=== PATIENT | male | born 1990 | race Caucasian/White ===

== ENCOUNTER 2020-02-09 06:05 | Emergency (ER) | payer OTHER ==
[~2020-02-09] VITALS: Ht 170.2 cm; Wt 79.8 kg
[2020-02-09 06:29] LABS: HEMOGLOBIN 9.1 gm/dL (14.0-18.0); RDW 26.3 % (10.5-14.5)
[2020-02-09 06:31] LABS: ABSOLUTE RETIC COUNT 0.2712 10^6/uL; HEMATOCRIT 26.1 % (42.0-52.0); MCH 28.5 pg (26.0-34.0); MCHC 34.8 g/dL (28.0-37.0); MCV 81.9 fL (80.0-100.0); OBSERVED RETIC COUNT 8.52 % (0.6-2.6); PLATELET COUNT 400 thou/uL (150-400); RBC 3.18 mil/uL (4.50-6.00); WBC 17.3 thou/uL (4.0-11.0)
[2020-02-09 06:41] LABS: CALCIUM 8.5 mg/dL (8.5-10.1); CREATININE 0.8 mg/dL (0.7-1.3); POTASSIUM 3.3 mmol/L (3.5-5.1)
[2020-02-09 06:47] LABS: TOTAL BILIRUBIN 4.4 mg/dL (<0.1-1.0); TOTAL PROTEIN 8.1 g/dL (6.4-8.2)
[2020-02-09] MEDS ORDERED: NORCO 5-325 TA1 EAC1 PO (07:23)
[2020-02-09] MEDS ORDERED: IBU600 MG PO (07:24)
[2020-02-09 07:47] VITALS: BP 115/61
[2020-02-09 08:02] LABS: ABSOLUTE NEUTROPHILS 9.2 thou/uL (1.4-8.2); ANISOCYTOSIS 3+; METAMYELOCYTES 1 %
[2020-02-09 08:03] LABS: MACROCYTES 1+; MICROCYTES 1+
== END 2020-02-09 07:47 | disposition home or self-care (01) ==
LOC: ER 06:05
PROVIDERS: Emergency Medicine
DX: D57.00 Hb-SS disease with crisis, unspecified (principal)

== ENCOUNTER 2020-02-09 11:37 | Inpatient (IN) | payer OTHER ==
[~2020-02-09] VITALS: Ht 170.2 cm; Wt 76.7 kg
[~2020-02-09 11:37] MED LIST: IBU600 MG PO; NORCO 5-325 TA1 EAC1 PO
[2020-02-09 11:54] VITALS: BP 137/53
[2020-02-09 12:38] LABS: TOTAL PROTEIN 7.5 g/dL (6.4-8.2)
[2020-02-09 13:00] LABS: URINE BILIRUBIN NEGATIVE (Negative); URINE BLOOD 1+ (Negative); URINE CLARITY CLEAR; URINE COLOR YELLOW; URINE GLUCOSE-RANDOM* NEGATIVE (Negative); URINE KETONES NEGATIVE (Negative); URINE LEUKOCYTES-REFLEX NEGATIVE (Negative); URINE NITRITE-REFLEX NEGATIVE (Negative); URINE PROTEIN (DIPSTICK) 1+ (Negative); URINE SPECIFIC GRAVITY 1.015 (1.005-1.035)
[2020-02-09 13:04] LABS: TSH 1.038 uIU/mL (0.358-3.740)
[2020-02-09 13:08] LABS: BACTERIA-REFLEX None Seen /HPF (None Seen); CASTS None Seen /LPF (None Seen); CRYSTALS None Seen /LPF (None Seen); SQUAMOUS None Seen /LPF (0-3); URINE RBC 0-2 Rare /HPF (0-2); URINE WBC-REFLEX 0-5 Rare /HPF (0-5)
[2020-02-09 14:46] VITALS: BP 132/58
[2020-02-09 16:30] VITALS: BP 122/60
[2020-02-09 20:06] VITALS: BP 149/67
--- NOTE | 2020-02-10 00:32 | NUR ---
PT AOX4. PT REPORTS SEVERE PAIN THROUGHOUT BODY, SPECIFICALLY IN BACK, CHEST, BOTH SHOULDERS, AND BOTH KNEES. PT RECEIVING PRN IV 0.5MG DILAUDID Q2HR, PRN IV 1.5MG DILAUDID Q4HR, AND PRN PO NORCO Q6HR. PT NPO EXCEPT FOR WATER, TOLERATING WATER INTAKE WITHOUT ISSUE. PT RESTING IN BED, NOTED TO HAVE INCREASED PAIN WITH MOVEMENT. PT REPORTS SOB, PROVIDED 2L OXYGEN VIA NC, PT REPORTS IMMEDIATE RELIEF. PT INDEPENDENT WITH REPOSITIONING. ENCOURAGED PT TO NOTIFY STAFF FOR ALL NEEDS. BED IN LOWEST POSITION, CALL LIGHT WITHIN REACH, BED ALARM ON. WILL CONTINUE TO MONITOR.
[2020-02-10 05:39] LABS: HEMOGLOBIN 7.6 gm/dL (14.0-18.0); RDW 25.6 % (10.5-14.5)
[2020-02-10 05:43] LABS: HEMATOCRIT 21.7 % (42.0-52.0); MCH 28.6 pg (26.0-34.0); MCHC 35.1 g/dL (28.0-37.0); MCV 81.5 fL (80.0-100.0); RBC 2.66 mil/uL (4.50-6.00); WBC 20.3 thou/uL (4.0-11.0)
[2020-02-10 05:48] LABS: ANION GAP 10 mmol/L (7-16); BUN 5 mg/dL (7-18); CALCIUM 8.1 mg/dL (8.5-10.1); CHLORIDE 99 mmol/L (98-107); CO2 23 mmol/L (21-32); CREATININE 0.6 mg/dL (0.7-1.3); GLUCOSE 118 mg/dL (74-106); MAGNESIUM 1.7 mg/dL (1.8-2.4); SODIUM 132 mmol/L (136-145); TROPONIN-I <0.06 ng/mL (<0.06)
[2020-02-10 05:58] LABS: POTASSIUM 3.5 mmol/L (3.5-5.1)
[2020-02-10 06:18] LABS: ABSOLUTE RETIC COUNT 0.2075 10^6/uL; OBSERVED RETIC COUNT 7.66 % (0.6-2.6)
[2020-02-10 08:01] VITALS: BP 119/66
[2020-02-10 08:30] LABS: % SATURATION 16 % (20-39); IRON 49 ug/dL (65-175); TIBC 301 ug/dL (250-450)
--- NOTE | 2020-02-10 09:13 | NUR ---
RECEIVED REPORT FROM NIGHT NURSE THAT PT IS NPO EXCEPT WATER AND PT DOESN'T WANT TO BE DISTURBD. DR. DHILLON HERE TO SEE PT AND SAID PT DOESN'T HAVE ANY SYMPTOMS OF COVID 19, BUT SINCE PT HAS SICKLE CELL EXCERBATION AND RETIC COUNT 7.6 WOULD LIKE PT TO BE TEST FOR COVID 19. NOTIFIED CHARGE NURSE, FOOD AND BEVERAGE DIRECTOR AND DOCTOR JOSE [address] WITH TRANSFER PT TO 3W. CALLED AND GAVE REPORT TO Godfrey GRAHAM NURSE. INFORMED PT ABOUT THE PLAN AND TRANSFER PT SOON.
--- NOTE | 2020-02-10 10:15 | NUR ---
ASSUMED CARE OF THE PT AT 0945. PT IS C/O PAIN, EVEN WHILE ASLEEP. LUNGS ARE CLEAR AND PULSES ARE STRONG. COVID TEST SENT TO LAB AND PT ON ISOLATION UNTIL COVID R/O CAN BE DETERMINED. PT IS NOT A FALL RISK AND SCD'S ARE NOT REQUIRED. PT IS NPO, BUT CAN HAVE WATER. BED IN THE LOWEST POSITION AND CALL LIGHT IS WITHIN REACH. WILL CONTINUE TO MONITOR THE PT.
--- NOTE | 2020-02-10 16:22 | NUR ---
ASSUMED CARE OF THE PT AT 0945. PT IS UP AD DORA AND IS NOT A FALL RISK, IF PT IS IN PAIN HE NEDS TO REMAIN IN BED BECAUSE HE IS UNSTEADY ON HIS FEET. PT CAN HAVE PAIN MEDS Q4 PRN OR Q2 FOR BREAKTHROUGH PAIN PER DOCTOR, SEE EMAR. PT TESTED NEG FOR COVID-19, SEE LABS. R AC IV DRY AND INTACT. C/O PAIN IS 10 OUT OF 10. PT IS RA. PT DRINKS WATER THROUGHOUT THE DAY BUT IS STILL NPO. CALL LIGHT IS WITHIN REACH AND BED IS IN THE LOWEST POSIION. WILL CONTINUE TO MONITOR THE PT.
--- NOTE | 2020-02-10 17:32 | NUR ---
Informed Dr. Llanos that patient Covid test is negative and temp 99.1 at 8pm last night. feels related to sickle cell crisis and in agreement to discontinuing isolation and transfer off floor.
[2020-02-10 19:35] VITALS: BP 126/65
--- NOTE | 2020-02-10 19:44 | NUR ---
PT GROGGY SLEEPING DURING ASSESSMENT. PT JUST RECEIVED IV PAIN MEDICATIONS. ROOM AIR O2 SAT 86%, 2L PER NC PLACED INCREASED 92%. PT FOLLOWED DIRECTIONS DURING VS AND ASSESSMENT. PT INDEPENDENT WITH ADLS, URINE DARK HERB IN URINAL. WAITING FOR RO[facility] ASSIGNMENT [facility].
--- NOTE | 2020-02-10 21:08 | NUR ---
REPORT CALLED TO 4W [facility]. PT RECEIVED PRN PAIN MED PRIOR TO TRANSFER. PT C/O GENERALIZED PAIN AND LE PAIN. PT HAD ALL OF HIS BELONGINGS RETURNED TO HIM.
[2020-02-11 05:58] LABS: HEMOGLOBIN 6.9 gm/dL (14.0-18.0); MCH 28.9 pg (26.0-34.0)
[2020-02-11 06:01] LABS: CALCIUM 7.9 mg/dL (8.5-10.1); CREATININE 0.6 mg/dL (0.7-1.3); MAGNESIUM 1.9 mg/dL (1.8-2.4); POTASSIUM 3.3 mmol/L (3.5-5.1)
[2020-02-11 06:03] LABS: ABSOLUTE RETIC COUNT 0.2497 10^6/uL; MCHC 35.9 g/dL (28.0-37.0); MCV 80.5 fL (80.0-100.0); OBSERVED RETIC COUNT 10.39 % (0.6-2.6); RBC 2.4 mil/uL (4.50-6.00); RDW 26.6 % (10.5-14.5); WBC 18.9 thou/uL (4.0-11.0)
[2020-02-11 06:07] LABS: HEMATOCRIT 19.3 % (42.0-52.0)
--- NOTE | 2020-02-11 06:17 | NUR ---
PROGRESS PT A/O X4 LUNGS CLEAR ABDOMEN SOFT WITH POSITIVE BS LAST BM 02/07. VOIDING LARGE AMOUNTS OF LIGHT PEACHY ORANGE COLORED URINE. DRINKING LARGE AMOUNTS OF WATER 3000 MLS LAST NIGHT, NS RUNNING AT 125MLS/HR. PT CONSISTENTLY RATES HIS PAIN AND 8 TO 9 LOWEST SCORE WAS A 6 AFTER MEDICATION. TAKING 1.5 MG DILAUDID Q2HRS PRN AND 0.5 MG DILAUDID Q2HRS PRN FOR BREAKTHROUGH PAIN.PT GRIMACES, WRITHES AND HOLDS HIS SHINS WHEN IN PAIN. HAD DIFFICULTY TRANSFERRING SLFT FROM WHEELCHAIR TO BED D/T PAIN. REQUESTED PT NOT TO GET OOB ALONE. AM LABS REVEALED HCT OF 19.3 FIDEL BARNES NOTIFIED VIA TEXT OF CRITICAL LAB AND NEED FOR DIET ORDER. AWAITNING RESPONSE.
[2020-02-11 07:42] VITALS: BP 145/61
[2020-02-11 09:29] LABS: ALBUMIN 3.3 g/dL (3.4-5.0); DIRECT BILIRUBIN 1.1 mg/dL (<0.1-0.2); TOTAL PROTEIN 6.9 g/dL (6.4-8.2)
[2020-02-11 09:30] LABS: TOTAL BILIRUBIN 5.7 mg/dL (<0.1-1.0)
[2020-02-11 13:41] VITALS: BP 145/61
--- NOTE | 2020-02-11 14:11 | NUR ---
Case opened to follow for dc planning. Project Financial Analyst spoke with the pt via phone. He indicates that he has utilized a community clinic in [place] in the past. He was indep and working prior to admission. [facility] in process d/t lack of health insurance, however the pt will likely need a tracey application. [facility] clinic link texted to the pt's cell phone for f/u care and several clinics noted on his dc instructions. CM to vouch for scripts at dc if neeeded. Pt getting blood transfusion today. Will follow.
[2020-02-11 16:00] VITALS: BP 128/62
[2020-02-11 16:05] VITALS: BP 128/60; BP 128/62
[2020-02-11 18:38] LABS: HEMATOCRIT 24.2 % (42.0-52.0)
[2020-02-11 18:40] LABS: HEMOGLOBIN 8.8 gm/dL (14.0-18.0)
--- NOTE | 2020-02-11 20:02 | NUR ---
Assumed pt care at 7am.Pt in bed most of the time today very weak and c/o generalized.Dilaidid ivp given as ordered with relief.Dr Marshall here,here order noted.1 unit of prbc given.Lab drawn to check hh level and the result was over 8.Report off to noc.No need for 2nd unit transfusion per covid protocol.Will continue to monitor.
[2020-02-11 20:15] VITALS: BP 132/63
--- NOTE | 2020-02-12 04:27 | NUR ---
Pt. rested quietly at intervals during the night when checked on during frequent rounds. He has been given iv pain medication for c/o generalized pain (see emar) with some relief noted. Taking po fluids well and voiding without difficulty. No c/o nausea.
[2020-02-12 06:28] LABS: HEMATOCRIT 23.7 % (42.0-52.0); HEMOGLOBIN 8.3 gm/dL (14.0-18.0); MCH 28.6 pg (26.0-34.0); MCHC 34.9 g/dL (28.0-37.0); MCV 81.9 fL (80.0-100.0); RBC 2.9 mil/uL (4.50-6.00); RDW 24.3 % (10.5-14.5); WBC 19.9 thou/uL (4.0-11.0)
[2020-02-12 06:44] LABS: ALBUMIN 3.1 g/dL (3.4-5.0); CALCIUM 8.2 mg/dL (8.5-10.1); CREATININE 0.5 mg/dL (0.7-1.3); MAGNESIUM 1.9 mg/dL (1.8-2.4); TOTAL BILIRUBIN 4.4 mg/dL (<0.1-1.0); TOTAL PROTEIN 7.2 g/dL (6.4-8.2)
[2020-02-12 07:07] LABS: POTASSIUM 2.9 mmol/L (3.5-5.1)
[2020-02-12 07:15] LABS: ABSOLUTE RETIC COUNT 0.2551 10^6/uL; OBSERVED RETIC COUNT 8.81 % (0.6-2.6)
[2020-02-12 07:20] VITALS: BP 138/64
--- NOTE | 2020-02-12 11:30 | NUR ---
Assumed pt care at 7am.Pt in bed resting.Assessment completed.vss.pt c/o generalized pain and requested for pain med.Dilaudid ivp given as ordered with relief.Dr Marshall and Seun here,order noted.Pt has adequate dark oli urine.Oral fluid encouraged.Miralax prn given per pt request.Will continue to monitor.
[2020-02-12 15:45] VITALS: BP 105/70
[2020-02-12 16:05] VITALS: BP 130/65
--- NOTE | 2020-02-12 16:10 | NUR ---
CARE TEAM INDICATED PT IS PROGRESSING SLOWLY TOWARD GOAL OF DC HOME. CM FOLLOWING REGARDING DC PLANNING.
[2020-02-12 19:14] VITALS: BP 130/58
[2020-02-13 07:57] LABS: ABSOLUTE RETIC COUNT 0.2833 10^6/uL; HEMOGLOBIN 8.1 gm/dL (14.0-18.0); MCH 29.4 pg (26.0-34.0); OBSERVED RETIC COUNT 10.33 % (0.6-2.6); PLATELET COUNT 222 thou/uL (150-400); RBC 2.74 mil/uL (4.50-6.00); RDW 24.5 % (10.5-14.5); WBC 19.6 thou/uL (4.0-11.0)
--- NOTE | 2020-02-13 08:05 | NUR ---
PROGRESS PT A/O X4 UP AD DORA VOIDING QS AND DRINKING LARGE AMOUNTS OF WATER, IVF'S INFUSING AT 125ML/HR. VOIDING CLEAR YELLOW URINE THE ORANGE TINGE IS DISSIPATING. PT TAKING DILAUDID 2 MG Q4HRS FOR PAIN OF 8 TO 9 AND SCHEDULED HYDROCODONE PAIN HAS SLIGHTLY IMPROVED SINCE SUNDAY SKIN C/D/I VSS LABS STILL ABNORMAL HGB 8.8 AFTER UNIT OF RBC'S . CONTINUE TO MONITOR.
[2020-02-13 08:14] LABS: CALCIUM 8.2 mg/dL (8.5-10.1); CREATININE 0.5 mg/dL (0.7-1.3); MAGNESIUM 1.9 mg/dL (1.8-2.4); POTASSIUM 3.5 mmol/L (3.5-5.1); TOTAL BILIRUBIN 3.5 mg/dL (<0.1-1.0); TOTAL PROTEIN 7.5 g/dL (6.4-8.2)
[2020-02-13 08:15] VITALS: BP 126/64
[2020-02-13 10:17] LABS: ABSOLUTE NEUTROPHILS 14.7 thou/uL (1.4-8.2); MYELOCYTES 1 %; NUCLEATED RBCS 6 /100WBC
[2020-02-13 10:20] LABS: ANISOCYTOSIS 3+; MACROCYTES 1+; MICROCYTES 1+
[2020-02-13 10:21] LABS: POLYCHROMASIA SLIGHT
[2020-02-13 14:34] VITALS: BP 131/68
--- NOTE | 2020-02-13 15:48 | NUR ---
IT APPEARES THAT PT IS PROGRESSING SLOWLY TOWARD GOAL OF DC. PAIN IS IMPROVING. PT IS ON 2L O2 AT TIME OF THIS NOTE. 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 IT ISN'T ANTIPATED THAT PT WILL BE MEDICALLY STABLE TO DC OVER THE WEEKEND. PT HAD INFO FOR CLINICS UPON DC. PT WILL NEED NON NARCOTIC MEDS VOUCHERED UPON DC CM NOTIFIED PHYSICIAN THIS AFTERNOON THAT IT WEEKEND DC WAS ANTICPATED THAT SCRIPTS WERE NEEDED TO FILL. NO RESPONSE. CM TO FOLLOW INDICATED WITH DC PLANNING.
[2020-02-13 19:28] VITALS: BP 142/72
--- NOTE | 2020-02-13 19:47 | NUR ---
Assumed pt care this am, VS stable through out the shift. Pt had 2 bm, brownish green today. Pain was managed with medications, partial relief was noted. 2L of O2 via NC for comfort. POC followed, endorsed to the night nurse.
--- NOTE | 2020-02-14 02:49 | NUR ---
pain controlled this shift. patient had a bowel movement this shift. patient educated on use of narcotics on taking p.o vs iv and the benefit of taking po pain meds for pain management. patient ambulates to the bathroom with steady gaits. no shortness of air or distress noted this shift. patient in bed asleep at this time breathing regular and unlaboured.
[2020-02-14 08:28] VITALS: BP 127/73
[2020-02-14 14:35] VITALS: BP 131/61
--- NOTE | 2020-02-14 18:25 | NUR ---
ASSUMED CARE AROUND 0700, PT A&O X 4, NO ACUTE CHANGES NOTED. VSS, O2 ON 2L. PT C/O PAIN MEDICATED WITH ZULMA AND PRN WITH LITLE RELIEF, PROVIDER NOTIVED AND ASSESSED PT AT BEDSIDE. MEDS ADJUSTED PER MD, PT REPORTED BETTER RELIEF WITH NEW REGIMEN. IV TO LAC INFUSING 1/2NS AT 125ML/H. CONTINENT OF B&B, BM 02/13/20. RESTING IN BED, CALL LIGHT WITHIN REACH, WILL CONTINUE TO MONITOR PER POC.
[2020-02-14 19:23] VITALS: BP 126/65
[2020-02-15 03:31] VITALS: BP 132/69
--- NOTE | 2020-02-15 03:56 | NUR ---
PROGRESS PT A/O X4, SKIN C/D/I IV TO LAC INFUSING 1/2 NS@125. VOIDING QS HERB COLORED URINE IN LARGE AMOUNTS GOOD PO FOOD AND FLUID INTAKE. UP AD DORA GAIT STEADY. ON 2 LITERS OF O2 FOR COMFORT, TAKING SCHEDULED HYDROCODONE AND IV DILAUDID WITH EFFECT RATES PAIN AN 8 TO 9 BEORE AND A 5 ON PAIN REASSESSMENT. CONTINUE TO MONITOR AND MEDICATE NEEDED.
[2020-02-15 07:15] VITALS: BP 132/72
[2020-02-15 13:58] LABS: WBC 11.9 thou/uL (4.0-11.0)
[2020-02-15 14:01] LABS: ABSOLUTE RETIC COUNT 0.2543 10^6/uL; HEMATOCRIT 24.2 % (42.0-52.0); HEMOGLOBIN 8.4 gm/dL (14.0-18.0); MCH 28.9 pg (26.0-34.0); MCHC 34.6 g/dL (28.0-37.0); MCV 83.5 fL (80.0-100.0); OBSERVED RETIC COUNT 8.76 % (0.6-2.6); RDW 23.2 % (10.5-14.5)
[2020-02-15 14:04] LABS: PLATELET COUNT 308 thou/uL (150-400)
[2020-02-15 14:17] LABS: ALBUMIN 2.9 g/dL (3.4-5.0); CALCIUM 8.9 mg/dL (8.5-10.1); CREATININE 0.4 mg/dL (0.7-1.3); POTASSIUM 4.3 mmol/L (3.5-5.1); TOTAL BILIRUBIN 12.6 mg/dL (<0.1-1.0); TOTAL PROTEIN 8.9 g/dL (6.4-8.2)
[2020-02-15 14:57] LABS: ANISOCYTOSIS 3+; NUCLEATED RBCS 2 /100WBC
[2020-02-15 14:58] LABS: TARGET CELLS 3+
[2020-02-15 15:35] VITALS: BP 120/71
--- NOTE | 2020-02-15 16:59 | NUR ---
PT ALERT AND ORIENTED TIMES FOUR. VSS, IVF INFUSING PER ORDER. SCHEDULED AND PRN MEDICATIONS CONTROLLING PAIN WELL. PT TOLERATES MEDS AND MEALS. PT UP AB DORA WITH STEADY GAIT. PT PROGRESSING TOWRADS POC GOALS.
[2020-02-15 20:40] VITALS: BP 122/66
[2020-02-16 07:18] VITALS: BP 126/76
[2020-02-16 08:17] LABS: HEMATOCRIT 24.3 % (42.0-52.0); HEMOGLOBIN 8.2 gm/dL (14.0-18.0); MCH 28.5 pg (26.0-34.0); MCHC 33.8 g/dL (28.0-37.0); MCV 84.1 fL (80.0-100.0); PLATELET COUNT 357 thou/uL (150-400); RBC 2.89 mil/uL (4.50-6.00); WBC 13.1 thou/uL (4.0-11.0)
--- NOTE | 2020-02-16 08:42 | NUR ---
progress pt a/o x4 up ad cathy. still reporting bone pain at an 5 to an 8 taking 10 mg hydrocone scheduled and iv dilaudid 2 mg q4hrs prn with effect pt slept more this shift and took less medicine than previous shifts. eyes still jaundiced urine still very dark oli. voiding large amounts and drinking large amounts of fluid. vss continue to monitor
[2020-02-16 09:10] LABS: ALBUMIN 3.1 g/dL (3.4-5.0); CALCIUM 8.8 mg/dL (8.5-10.1); CREATININE 0.5 mg/dL (0.7-1.3); POTASSIUM 4.3 mmol/L (3.5-5.1); TOTAL BILIRUBIN 8.3 mg/dL (<0.1-1.0); TOTAL PROTEIN 9.1 g/dL (6.4-8.2)
[2020-02-16 09:31] LABS: ABSOLUTE RETIC COUNT 0.1922 10^6/uL; OBSERVED RETIC COUNT 6.66 % (0.6-2.6)
[2020-02-16 10:27] LABS: ABSOLUTE NEUTROPHILS 10.9 thou/uL (1.4-8.2); NUCLEATED RBCS 3 /100WBC
[2020-02-16 10:28] LABS: ANISOCYTOSIS 3+
--- NOTE | 2020-02-16 13:33 | NUR ---
ORDERS RECEIVED FOR EVAL AND TREAT. SPOKE WITH Pt WHO STATES HE IS GETTING UP WITHOUT DIFFICULTY AND THEY ALLOW HIM TO GO TO THE BATHROOM WITHOUT ASSIST. DISCUSSED WITH NURSING AND THEY STATE HE IS UP AD DORA. Pt DECLIINING A FORMAL P.T. EVAL BUT HAS BEEN UP AD DORA WITH NURSING AND MOST LIKELY SAFE FOR HOME WHEN MEDICALLY CLEAR
--- NOTE | 2020-02-16 14:42 | NUR ---
Nutrition: pt admitted with sickle cell crisis and seen for LOS. 2 weights taken around admit, 176# and 169#. Pt unsure which is accurate but voices no recent change. Eating well, 50-100% of meals. Did state he dislikes certain items so educated pt on ordering meals and obtained food preferences. On KCl, folic acid supplementation and IVFs. Place as low nutrition risk.
--- NOTE | 2020-02-16 15:21 | NUR ---
ORDERS RECEIVED AND APPRECIATED. SPOKE WITH PATIENT THIS P.M, DECLINING FORMAL OT EVAL. HAS BEEN UP AD DORA IN ROOM, ABLE TO PERFORM TOILETING AND DRESSING TASKS. NO CONCERNS GOING HOME. EDUCATION PROVIDED AND PATIENT REPORTS NO FURTHER QUESTIONS/CONCERNS.
[2020-02-16 15:37] VITALS: BP 131/69
[2020-02-16 19:15] VITALS: BP 138/75
--- NOTE | 2020-02-16 19:55 | NUR ---
PT A&OX4. IV INTACT TO L FA INFUSING FLUIDS W/O COMPS. UIP AD DORA. JAUNDICE NOTED THROUGHOUT BODY. PT TOLERATING PO AND IV PAIN MEDS FOR SICKLE CELL ANEMIA PAIN. URINE IS BROWN. PT IS VERY PLEASANT.
--- NOTE | 2020-02-17 02:43 | NUR ---
PT CARE ASSUMED WITH PT IN BED SLEEPING.PT IS A/O X4.PT IS UP AD DORA.PT IS ON 2L OF O2 PER NASAL CANULA.PT C/O PAIN AND PAIN MANAGED WITH DILAUDID AND HYDROCODONE.PT APPEARED TO BE IN NO ACUTE DISTRESS.IV ACCESS ON LT AC WITH 0.45NS AT 125.WILL CONTINUE TO MONITOR
[2020-02-17 06:03] LABS: HEMOGLOBIN 8.2 gm/dL (14.0-18.0); WBC 9.6 thou/uL (4.0-11.0)
[2020-02-17 06:04] LABS: ABSOLUTE NEUTROPHILS 5.9 thou/uL (1.4-8.2); BASOPHILS 0.8 % (0.0-2.0); EOSINOPHILS 2.6 % (0.0-3.0); HEMATOCRIT 23.2 % (42.0-52.0); LYMPHOCYTES 29.9 % (24.0-44.0); MCHC 35.1 g/dL (28.0-37.0); MCV 82.6 fL (80.0-100.0); MONOCYTES 5.6 % (1.0-8.0); PLATELET COUNT 395 thou/uL (150-400); POLYS 61.1 % (36.0-66.0); RBC 2.81 mil/uL (4.50-6.00); RDW 22.8 % (10.5-14.5)
[2020-02-17 06:20] LABS: ALBUMIN 2.9 g/dL (3.4-5.0); CALCIUM 8.9 mg/dL (8.5-10.1); CREATININE 0.6 mg/dL (0.7-1.3); POTASSIUM 3.9 mmol/L (3.5-5.1); TOTAL BILIRUBIN 11.6 mg/dL (<0.1-1.0); TOTAL PROTEIN 9.7 g/dL (6.4-8.2)
[2020-02-17 06:24] LABS: ABSOLUTE RETIC COUNT 0.1335 10^6/uL; OBSERVED RETIC COUNT 4.84 % (0.6-2.6)
[2020-02-17 07:05] VITALS: BP 121/56
[2020-02-17 07:09] LABS: HAV IgM AB (ANTI-HAV IgM) Negative (Negative); HEPATITIS B SURFACE AG Negative (Negative); HEPATITIS C VIRUS AB 0.1 (0.0-0.9)
--- NOTE | 2020-02-17 11:26 | NUR ---
Received awake on bed. Due medications given as prescribed, able to swallow meds w/o difficulty. With O2 at 2lpm via nasal cannula. A+Ox4. On regular diet; tolerating well, no nausea, no vomiting and no abdominal pain noted. Continent of bowel and bladder, able to use urinal and go to the toilet. With NS 1/2 at 125cc/hr, infusing well at L AC; dressing C/D/I. Up ad cathy. Assisted in ADLs. Complained of pain, due PRN pain meds given as prescribed. Reviewed pt's orders, with scheduled MRI/MRCP for today, pt was not placed on NPO post midnight- MRI staff informed; charge nurse and territory sales manager informed; asked pt last food and fluid intake- instructed to be on NPO until procedure is done. MRI staff Brandon informed re: last oral intake. MRI checklist done. Pt brought down via wheelchair for MRI; transferred back to room safely. To continue monitoring patient.
--- NOTE | 2020-02-17 16:21 | NUR ---
CARE TEAM INDICATED THAT PT WILL LIKELY BE MEDICALLY STABLE TO DISHCARGE HOME TOMORROW. CM TO VOUCHER NON NARCOTIC MEDS.
[2020-02-17 16:28] VITALS: BP 127/70
[2020-02-17 20:00] VITALS: BP 119/67
--- NOTE | 2020-02-18 03:32 | NUR ---
ASSUMED CARE OF PT AT 1900HRS. PT IS AOX4 AND LETS NEEDS BE KNOWN. PT IS UP AD DORA. PT IS JAUNDICED. PT HAD AN EPISODE OF CLEAR, YELLOW EMISIS APPROX 250ML. PT REPORTED PAIN AND NAUSEA AND WAS TREATED WITH PRN MEDS. MEDICATION WAS EFFECTIVE AND PT WAS ABLE TO SLEEP PART OF THE SHIFT. VSS AND NO S/S OF ACUTE DISTRESS. WILL CONTINUE TO MONITOR.
[2020-02-18 05:20] LABS: HEMATOCRIT 22.5 % (42.0-52.0); HEMOGLOBIN 7.7 gm/dL (14.0-18.0); MCH 28.9 pg (26.0-34.0); MCHC 34.4 g/dL (28.0-37.0); MCV 83.9 fL (80.0-100.0); RBC 2.68 mil/uL (4.50-6.00); RDW 21.9 % (10.5-14.5)
[2020-02-18 05:29] LABS: PLATELET COUNT 472 thou/uL (150-400); WBC 38.2 thou/uL (4.0-11.0)
[2020-02-18 05:53] LABS: ALBUMIN 2.9 g/dL (3.4-5.0); CALCIUM 8.9 mg/dL (8.5-10.1); CREATININE 0.6 mg/dL (0.7-1.3); POTASSIUM 3.9 mmol/L (3.5-5.1); TOTAL BILIRUBIN 19.7 mg/dL (<0.1-1.0); TOTAL PROTEIN 9.7 g/dL (6.4-8.2)
[2020-02-18 07:48] LABS: TOTAL BILIRUBIN 19.7 mg/dL (<0.1-1.0)
[2020-02-18 07:49] LABS: DIRECT BILIRUBIN 14.1 mg/dL (<0.1-0.2)
[2020-02-18 09:11] VITALS: BP 120/61
[2020-02-18 09:35] LABS: ABSOLUTE NEUTROPHILS 35.1 thou/uL (1.4-8.2); METAMYELOCYTES 1 %; NUCLEATED RBCS 1 /100WBC
[2020-02-18 09:40] LABS: ANISOCYTOSIS 2+
--- NOTE | 2020-02-18 10:57 | NUR ---
Received awake on bed. Due medications given as prescribed, able to swallow meds w/o difficulty. On O2 at 2lpm via nasal cannula. On regular diet- tolerating well; no nausea, no vomiting and no abdominal pain. Continent of bowel and bladder- using urinal to pass urine and able to go to the toilet- output measured and recorded accordingly. With 1/2NS at 125cc/hr, infusing well at L FA. Up ad cathy, independent with ADLs. Complained of pain, due PRN pain meds given as prescribed. Pt seen and examined by Dr Marshall- to inform GI re: elevation of Bilirubin- CLOAK ROOM ATTENDANT Gildardo informed; to inform pharmacy re: vaccines that needs to be given to patient; pain medications modified by physician; with lab draws orderes. Pt seen and examined by Dr Dennis- blood culture ordered; with consult to Dr Rivero- physician informed thru answering service, a/w rounds. To continue monitoring patient.
--- NOTE | 2020-02-18 11:35 | NUR ---
Case discussed with the care team. No dc today. Pt with anup meneses and being seen by surgery for poss ry. Will follow along to assist with filling scripts at dc and instructing the pt on access to f/u care at the [facility].
[2020-02-18 14:22] VITALS: BP 126/62
[2020-02-18 15:04] LABS: INR 1.1; PROTIME 11.4 Seconds (9.3-11.4)
[2020-02-18 19:10] VITALS: BP 122/64
[2020-02-19 04:55] LABS: HEMATOCRIT 20.5 % (42.0-52.0); MCHC 34.4 g/dL (28.0-37.0)
[2020-02-19 04:58] LABS: ABSOLUTE RETIC COUNT 0.1237 10^6/uL; MCH 28.8 pg (26.0-34.0); MCV 83.9 fL (80.0-100.0); OBSERVED RETIC COUNT 5.07 % (0.6-2.6); PLATELET COUNT 519 thou/uL (150-400); RBC 2.44 mil/uL (4.50-6.00); RDW 23.1 % (10.5-14.5)
[2020-02-19 05:14] LABS: ALBUMIN 2.6 g/dL (3.4-5.0); CREATININE 0.6 mg/dL (0.7-1.3); DIRECT BILIRUBIN 7.4 mg/dL (<0.1-0.2); TOTAL BILIRUBIN 10.6 mg/dL (<0.1-1.0); TOTAL PROTEIN 9.4 g/dL (6.4-8.2)
--- NOTE | 2020-02-19 07:20 | HC ---
[facility] [place] [address] CONSULTATION Name: SANTOS HAMLIN Room #: 453-P ADM IN M.R.#: [id number] Admission: 02/09/20 Attend Phys: Joaquin Dennis MD Discharge: Date of : 89 Report #: [id number] THIS REPORT FOR: cc: KAROLYN - No family physician/PCP FAM - No family physician/PCP Johnnie Rivero MD ~ CC: [facility] physician/PCP Joaquin Dennis DATE OF SERVICE: 02/18/2020 REASON FOR CONSULTATION: Possible cholangitis. ASSESSMENT: 1. Cholangitis. 2. Sickle cell crisis. 3. Hyperbilirubinemia. 4. Transaminitis. 5. Elevated alkaline phosphatase. 6. Hyponatremia. RECOMMENDATIONS: 1. Thank you very much for this consultation. I will follow along. 2. Agree with ERCP. White blood count up considerably. The patient is stable. Given findings of hyperbilirubinemia/obstructive jaundice as well as dilated common bile duct on ultrasound imaging, I do think choledocholithiasis and cholangitis is significantly possible. The MRCP was negative, but the MRCP does have a considerable false negative rate. 3. Agree with IV antibiotics. 4. We will see what the ERCP shows tomorrow, the patient likely needs laparoscopic cholecystectomy, possible liver biopsy as well. 5. We will add on INR, although, I do not think he has intrinsic liver issues at this point. HISTORY OF PRESENT ILLNESS: The patient is a very pleasant 29-year-old male who presented on 02/09/2020 with sickle cell crisis, at that time, he was having abdominal pain and body aches. He has a history of sickle cell anemia and has had a sickle crisis in the past as well. While in the hospital, the patient has had worsening hyperbilirubinemia and repeat ultrasound demonstrated dilated common bile duct with concerns for biliary obstruction. His white count is 37. The patient denies abdominal pain, nausea or vomiting currently. PAST MEDICAL HISTORY: Sickle cell disease. PAST SURGICAL HISTORY: Exploratory laparotomy. [facility] [address] [place] [address] CONSULTATION Name: SANTOS HAMLIN Room #: 453-P [facility] IN .R.#: [id number] Admission: 02/09/20 Attend Phys: Joaquin Dennis MD Discharge: Date of : 89 Report #: [id number] SOCIAL HISTORY: Denies use of alcohol, tobacco or recreational drugs. FAMILY HISTORY: Denies coagulopathy or malignancy. REVIEW OF SYSTEMS: CONSTITUTIONAL: No fever. No chills. HEENT: Denies blurring of vision, double vision, headaches, hearing loss, sinus drainage or sore throat. Denies blurring of vision, double vision, headaches, hearing loss, sinus drainage or sore throat. CARDIOVASCULAR: Denies chest pain, palpitations, orthopnea or paroxysmal nocturnal dyspnea. RESPIRATORY: Denies cough, wheezing, hemoptysis, or shortness of air. GASTROINTESTINAL: No nausea. No vomiting. No diarrhea. No Heartburn. No nausea. No vomiting. No diarrhea. No Heartburn. GENITOURINARY: Denies dysuria or hematuria or kidney stones. No urinary frequency, urgency or incontinence. Denies dysuria or hematuria or kidney stones. No urinary frequency, urgency or incontinence. MUSCULOSKELETAL: No joint pain. No muscle pain. NEUROLOGICAL: Denies tremor, stroke or seizure. Denies tremor, stroke or seizure. HEMATOLOGIC/LYMPHATICS: See above and below. SKIN: No rash or ulceration. ENDOCRINE: No heat or cold intolerance PSYCHIATRIC: Denies depression, anxiety, or schizophrenia. PHYSICAL EXAMINATION: VITAL SIGNS: Temperature 36.9, pulse 86, respiratory rate 16, blood pressure 126/62, pulse ox 97%. GENERAL: No apparent distress, alert and oriented x3. HEENT: PERRLA, EOMI, MMM, NCAT NECK: Supple. No LAD CARDIOVASCULAR: Regular rhythm and rate. Hemodynamically stable. Normal capillary refill. Regular rhythm and rate. Hemodynamically stable. Normal capillary refill. PULMONARY: Nonlabored. Clear to auscultation bilaterally ABDOMEN: Soft, nontender, nondistended. No guarding, rebound or rigidity. The patient does have a midline exploratory laparotomy incision. EXTREMITIES: Calves soft, nontender, no edema. SKIN: No rashes or bruises. He is severely jaundiced. PSYCHIATRIC: Normal mood and affect Normal mood and affect NEUROLOGICAL: Grossly intact. CN II-XII grossly intact. MUSCULOSKELETAL: 5/5 strength in upper extremities and lower extremities bilaterally LYMPHATICS: No cervical, inguinal, or supraclavicular lymphadenopathy. [address] [address] CONSULTATION Name: SANTOS HAMLIN Room #: 453-P ADM IN M.R.#: [id number] Admission: 02/09/20 Attend Phys: Joaquin Dennis MD Discharge: Date of : 89 Report #: [id number] LABORATORY DATA: White blood count 38.2, hemoglobin 7.7, platelets 47.2. Sodium 129, potassium 3.9, creatinine 0.6, bilirubin 19.7, direct bilirubin 14.1, AST 131, ALT 114, alkaline phosphatase 398. Viral hepatitis panel is negative. Abdominal ultrasound on 02/09/2020. IMPRESSION: Cholelithiasis. No ultrasound evidence of acute cholecystitis. Common bile duct is 5 mm. Abdominal ultrasound on 02/16/2020. IMPRESSION: Abdominal ultrasound demonstrates rapidly enlarging CBD size suggesting a distal duct obstruction. Ultrasound evaluation demonstrates multiple mobile and adherent small stones within the gallbladder. I suspect the patient has a distal duct stone producing obstruction. There are no current findings for acute cholecystitis. Common bile duct is 11 mm. MRCP IMPRESSION: 1. Distended gallbladder with numerous small stones. 2. Mildly prominent intrahepatic ducts and extrahepatic common bile duct with the common bile duct measuring up to 12 mm just proximal to the ampulla. The pancreatic duct was normal. 3. No filling defects are present in the common bile duct. No masses were identified in the head of the pancreas. 4. 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 5. The dilated common duct may be secondary to previous stone passage. No obstructing mass or obstructing calculus is present at this time. <ELECTRONICALLY SIGNED> By: Johnnie Rivero MD 02/19/20 0720 [id number] Johnnie Rivero MD /nt
[2020-02-19 07:26] LABS: ABSOLUTE NEUTROPHILS 8.5 thou/uL (1.4-8.2)
[2020-02-19 07:27] LABS: ANISOCYTOSIS 2+
[2020-02-19 07:28] LABS: HYPOCHROMASIA 2+
[2020-02-19 07:29] LABS: PLATELET ESTIMATE INCREASED
--- NOTE | 2020-02-19 07:32 | NUR ---
ASSUMED PT CARE AROUND 1930. AXOX4. INDEPENDENT WITH ADLs. CALLS APPROPRIATELY FOR HELP. VSS. KEPT NPO POST MN FOR GI PROCEDURE. NO S/S ACUTE DISTRESS NOTED OR REPORTED AT THIS TIME. CARE TRANSFERRED TO INCOMING RN AT THIS TIME.
[2020-02-19 08:01] VITALS: BP 114/67
--- NOTE | 2020-02-19 11:41 | NUR ---
CARE TEAM INDICATED THAT THEY ARE PLANNING TO DO AN ERCP AND A LAP MARIA LUISA. CM TO FOLLOW INDICATED WITH DC PLANNING.
[2020-02-19 15:55] VITALS: BP 122/54
--- NOTE | 2020-02-19 19:20 | NUR ---
Assumed pt care this am, pt was NPO and went down for ERCP. VS have been stable, seen by surgery for lap ry and liver biopsy tomorrow, NPO post midnight tonight pt aware. Pain managed with medication, gait is steady, no signs or verbalizations of distress have been noted. POC followed. Endorsed to the night nurse.
[2020-02-19 19:57] VITALS: BP 122/62
[2020-02-20 04:33] LABS: HEMOGLOBIN 6.9 gm/dL (14.0-18.0); MCHC 34.5 g/dL (28.0-37.0)
[2020-02-20 04:38] LABS: ABSOLUTE NEUTROPHILS 8.4 thou/uL (1.4-8.2); ABSOLUTE RETIC COUNT 0.1205 10^6/uL; BASOPHILS 0.7 % (0.0-2.0); EOSINOPHILS 1.2 % (0.0-3.0); LYMPHOCYTES 15.5 % (24.0-44.0); MCH 29.3 pg (26.0-34.0); MCV 84.8 fL (80.0-100.0); MONOCYTES 10.5 % (1.0-8.0); OBSERVED RETIC COUNT 5.12 % (0.6-2.6); PLATELET COUNT 575 thou/uL (150-400); POLYS 72.1 % (36.0-66.0); RBC 2.35 mil/uL (4.50-6.00); WBC 11.7 thou/uL (4.0-11.0)
[2020-02-20 04:42] VITALS: BP 113/58
[2020-02-20 04:51] LABS: ALBUMIN 2.5 g/dL (3.4-5.0); CALCIUM 8.6 mg/dL (8.5-10.1); CREATININE 0.6 mg/dL (0.7-1.3); DIRECT BILIRUBIN 4.8 mg/dL (<0.1-0.2); POTASSIUM 3.7 mmol/L (3.5-5.1); TOTAL PROTEIN 9.2 g/dL (6.4-8.2)
--- NOTE | 2020-02-20 06:47 | NUR ---
PROGRESS PT A/O X4 UP AD DORA VSS, REPORTS PAIN TO RUQ AT A 5 TO 9 TAKING HYDROMORPHONE 2 MG IVP PRN WITH EFFECT FOR PAIN. VSS, EYES AND SKIN JAUNDICED. REPORT GIVEN TO DAVON NURSE PT TO GO TO OR FOR LAP MARIA LUISA VIA BED AT 730.
[2020-02-20 12:00] VITALS: BP 119/59
[2020-02-20 12:30] VITALS: BP 123/58
[2020-02-20 13:01] VITALS: BP 123/61
--- NOTE | 2020-02-20 15:56 | P ---
[facility] [place] [address] PROCEDURE REPORT Name: SANTOS HAMLIN Room #: 453-P [facility] IN M.R.#: [id number] Admission: 02/09/20 Attend Phys: Joaquin Dennis MD Discharge: Date of : 89 Report #: [id number] THIS REPORT FOR: cc: KAROLYN - No family physician/PCP KAROLYN - No family physician/PCP Kemal Higginbotham MD ~ CC: Johnnie Rivero MD [facility] physician/PCP Joaquin Dennis ERCP REPORT BRIEF HISTORY: The patient is a 29-year-old male with sickle cell disease and markedly rising bilirubin. His bilirubin is up to 19. On MRCP, he has a dilated biliary tree, but an obvious stone was not present. His bilirubin has continued to rise. Overnight, there was significant drop in bilirubin, which has not entirely excluded the possibility of a stone. He does have gallstones. PREOPERATIVE DIAGNOSES: Cholelithiasis and jaundice. POSTOPERATIVE DIAGNOSES: 1. Dilated common bile duct without definite evidence of choledocholithiasis. 2. Cholelithiasis. MEDICATIONS: Intubation, general anesthesia. SPECIMEN: None. ESTIMATED BLOOD LOSS: 5 mL. PROCEDURE: ERCP with endoscopic sphincterotomy and balloon sweep of biliary tree. FINDINGS: Prior to intubation and general anesthesia, the procedure of ERCP was reviewed with the patient as well as potential risks and its complications. Potential sphincterotomy and stone extraction was discussed as well. He indicates he understands and desires that we proceed. DESCRIPTION OF PROCEDURE: With the patient intubated in the prone position in the operating suite, the Olympus side-viewing endoscope was inserted in cervical esophagus and advanced through the esophagus, stomach, across the pylorus and his duodenum. The papilla was identified. The papilla appeared to be somewhat patulous. Interestingly, there was some red blood on the mouth of the papilla. I would wonder if he did pass the stone overnight. There may have been some trauma and a small amount of oozing. The papilla had a benign appearance. It did appear to be somewhat redundant. The papilla was angled more laterally, which made cannulation more difficult. After several passes with the [facility] [address] [place] [address] PROCEDURE REPORT Name: SANTOS HAMLIN Room #: 453-P [facility] IN M.R.#: [id number] Admission: 02/09/20 Attend Phys: Joaquin Dennis MD Discharge: Date of : 89 Report #: [id number] sphincterotome, we were finally able to cannulate and on the first pass with cannulation, we had deep cannulation of the biliary tree. Injection of contrast revealed evidence of a dilated extrahepatic biliary tree. There was some filling the gallbladder and cholelithiasis was noted. The central intrahepatics were somewhat dilated, but no evidence of obstruction. Upon initial filling, there was a vague hypodense area in the common bile duct, it was oblong in shape. This may represent flow artifact with contrast or even air within the biliary tree. We then completed a sphincterotomy. A good sphincterotomy was obtained. Due to the orientation of the papilla was more lateral but since the papilla was somewhat redundant, there was plenty of room to complete a sphincterotomy. There was a small amount of oozing, which stopped spontaneously. We then exchanged for a balloon catheter. On MRCP, the biliary tree measured up to 2 cm. We started off with a 20 mm multistage balloon. We were able to inflate the balloon, but it would not pass easily and we dropped the level all the way down to 12 mm balloon into the distal duct, it would not pass. Injection of contrast was completed. An obvious filling defect was not seen. We then replaced that balloon with an 8.5-15 mm balloon and pulled the balloon catheter, inflated through the extrahepatic biliary tree while injecting contrast and no stones were seen. There was good drainage from the distal duct. The scope was withdrawn. The patient tolerated the procedure well. DISPOSITION: The patient with cholelithiasis and elevated bilirubin. His bilirubin had climbed to 19, which is somewhat unusual for obstruction. There is some subtle evidence that he may have passed a stone since yesterday with some blood noted on the mouth papilla. An intraductal stone was not seen. A small stone could be present, which was not seen. However, an adequate sphincterotomy was completed and small stone, sludge and debris should pass without difficulty. I am concerned that he has parenchymal disease due to the significant elevation of bilirubin. This was discussed with Dr. Rivero. Plans are for cholecystectomy tomorrow and I have asked Dr. Rivero also to obtain a liver biopsy. <ELECTRONICALLY SIGNED> By: Kemal Higginbotham MD 02/20/20 1556 1023 1220 Kemal Higginbotham MD /julienne
--- NOTE | 2020-02-20 16:05 | NUR ---
PT HAD LAP MARIA LUISA TODAY. CARE TEAM INDICTED THAT PT MAY BE MEDICALLY STABLE FOR DC OVER THE WEEKEND. TWO PERSCRIPTIONS WERE FILLED IN THE OP PHARMACY AND VOUCHERED BY CM FOR THE AMOUNT OF $31.33. THEY ON ON THE NURSES CART TO BE GIVEN TO PT IF PERSCRIBED UPON DC. PT GIVEN INFO FOR CLINICS FOR FOLLOW UP CARES. NO OTHER CM INTERVENTION INDICATED. CASE CLOSED.
--- NOTE | 2020-02-20 17:46 | NUR ---
PT A&OX4. AMBULATES WITH STAND BY ASSIST. RETURNED FROM PACU WITH LAP SITES C/D/I WITH DERMABOND. UMBILICUS SM DRSG IS C/D/I ITH JUAQUIN GAUZE. C/O PAIN TO ABD SEVERE. PT DID VOID 900 ML BROWN COLORED URINE. RESTARTED ON CLEARS AFTER 14:00 AND IS TOLERATING. CALL LIGHT W/ REACH. WILL CONT POC.
[2020-02-20 20:08] VITALS: BP 122/74
[2020-02-20 23:47] VITALS: BP 106/59
--- NOTE | 2020-02-21 03:40 | NUR ---
pain controlled this shift. patient 5 abd site are c/d/i. the umblical dressing is c/d/i. patient is up at cathy. patient in bed asleep at this time breathing regular and unlaboured
[2020-02-21 03:45] VITALS: BP 110/56
[2020-02-21 05:13] LABS: ABSOLUTE NEUTROPHILS 10.6 thou/uL (1.4-8.2); ABSOLUTE RETIC COUNT 0.1582 10^6/uL; BASOPHILS 0.3 % (0.0-2.0); EOSINOPHILS 0.3 % (0.0-3.0); HEMATOCRIT 25.7 % (42.0-52.0); HEMOGLOBIN 8.7 gm/dL (14.0-18.0); MCH 29.1 pg (26.0-34.0); MCV 85.5 fL (80.0-100.0); MONOCYTES 10.1 % (1.0-8.0); OBSERVED RETIC COUNT 5.27 % (0.6-2.6); POLYS 81.3 % (36.0-66.0); RDW 20.8 % (10.5-14.5); WBC 13.1 thou/uL (4.0-11.0)
[2020-02-21 05:16] LABS: PLATELET COUNT 743 thou/uL (150-400)
[2020-02-21 05:32] LABS: ALBUMIN 2.7 g/dL (3.4-5.0); CALCIUM 8.8 mg/dL (8.5-10.1); CREATININE 0.8 mg/dL (0.7-1.3); DIRECT BILIRUBIN 6.9 mg/dL (<0.1-0.2); POTASSIUM 3.9 mmol/L (3.5-5.1); TOTAL BILIRUBIN 8.7 mg/dL (<0.1-1.0); TOTAL PROTEIN 9.5 g/dL (6.4-8.2)
[2020-02-21 07:31] VITALS: BP 127/64
--- NOTE | 2020-02-21 13:56 | NUR ---
Received awake on bed. Due medications given as prescribed, able to swallow meds w/o difficulty. With O2 at 2lpm via nasal cannula. On full liquid diet, tolerating well; no nausea, no vomiting and no abdominal pain noted. Continent of bowel and bladder, able to use urinal and go to the bathroom. With 4 abdominal lap sites with dermabond; C/D/I, no signs of bleeding and infection noted. Complained of pain, due PRN pain meds given as prescribed. With SL at R AC- intact and flushing well; on IV antibiotics. To continue monitoring patient.
[2020-02-21 14:22] VITALS: BP 119/60
[2020-02-21 20:07] VITALS: BP 114/67
--- NOTE | 2020-02-22 02:58 | NUR ---
PAIN CONTROLLED THIS SHIFT. PATIENT HAD A SMALL BOWEL MOVEMENT THIS SHIFT. PATIENT HAS FIVE LAP SITE C/D/I. PATIENT ON FULL LIQUID AND TOLERATED WELL. PATIENT IN BED ASLEEP AT THIS TIME BREATHING REGULAR AND UNLABOURED.
[2020-02-22 04:04] VITALS: BP 118/72
[2020-02-22 07:17] VITALS: BP 105/62
[2020-02-22 12:20] LABS: HEMATOCRIT 24.9 % (42.0-52.0); HEMOGLOBIN 8.3 gm/dL (14.0-18.0); MCHC 33.5 g/dL (28.0-37.0); MCV 86.3 fL (80.0-100.0); RBC 2.88 mil/uL (4.50-6.00); RDW 21.7 % (10.5-14.5); WBC 14.2 thou/uL (4.0-11.0)
[2020-02-22 12:43] LABS: ALBUMIN 2.6 g/dL (3.4-5.0); CALCIUM 8.7 mg/dL (8.5-10.1); CREATININE 0.8 mg/dL (0.7-1.3); MAGNESIUM 1.6 mg/dL (1.8-2.4); POTASSIUM 3.4 mmol/L (3.5-5.1); TOTAL BILIRUBIN 5.2 mg/dL (<0.1-1.0); TOTAL PROTEIN 9.5 g/dL (6.4-8.2)
[2020-02-22 15:39] VITALS: BP 104/52
--- NOTE | 2020-02-22 19:46 | NUR ---
Assumed patient care at 0715. Vital signs stable, LSCTA, abdomen is slightly rigid and tender. Lap Radha sites are w/o signs/symptoms of infection. Patient has requested and received Hydromorphone 2mg/1mL x's 2 during this shift for "level six to seven" abdominal pain. Pain medication has been effective. Patient has had good output. He reported three loose stools at the end of this shift. He has tolerated the IV Antibiotics well. Patient is up ad cathy to use the restroom. Report given to on-coming RN.
[2020-02-22 20:04] VITALS: BP 105/59
--- NOTE | 2020-02-23 04:09 | NUR ---
PAIN CONTROLLED THIS SHIFT. PATIENT HAS FOUR LAP SITE WITH DERMAL DIAS ARE C/D/I. DRESSING ON THE UMBILICUS IS C/D/I. PATIENT ON STAND BY ASSIST. PATIENT IN BED ASLEEP AT THIS TIME BREATHING REGULAR AND UNLABOURED.
[2020-02-23 04:58] VITALS: BP 110/66
[2020-02-23 05:42] LABS: HEMATOCRIT 24.1 % (42.0-52.0); HEMOGLOBIN 8.4 gm/dL (14.0-18.0); MCHC 34.9 g/dL (28.0-37.0); MCV 86.2 fL (80.0-100.0); RBC 2.8 mil/uL (4.50-6.00); RDW 21.4 % (10.5-14.5); WBC 12.7 thou/uL (4.0-11.0)
[2020-02-23 06:04] LABS: ALBUMIN 2.5 g/dL (3.4-5.0); CALCIUM 8.9 mg/dL (8.5-10.1); CREATININE 0.8 mg/dL (0.7-1.3); MAGNESIUM 1.7 mg/dL (1.8-2.4); POTASSIUM 3.7 mmol/L (3.5-5.1); TOTAL PROTEIN 9.3 g/dL (6.4-8.2)
[2020-02-23 07:25] VITALS: BP 93/52
[2020-02-23] MEDS ORDERED: FOLIC ACID1 MG PO (11:35)
--- NOTE | 2020-02-23 13:33 | NUR ---
CARE TEAM INDICATED THAT PT IS MEDICALLY STABLE TO DC HOME THIS DAY. PT TO BE GIVEN HIS VOUCHERED FOLIC ACID TO TAKE HOME WITH HIM. PHYSICIAN INDICATED THAT HE DIDN'T NEED THE ANTIBIOTIC FOR HOME USE. PT WAS GIVEN INFO FOR [facility] TO FOLLOW UP AT UPON DC. NO OTHER CM INTERVENTION INDICATED. CASE CLOSED.
--- NOTE | 2020-02-23 18:29 | NUR ---
Assumed patient care at 0715. Vital signs stable, LSCTA, abdomen soft and non-tender, BS x's 4. Lap Radha Sites free from s/s of infection. Patient complained of diarrhea this am. Dr Dennis here to assess patient this am, he wrote orders for Discharge for the afternoon. Patient verbalized an understanding of Discharge Instructions before signing appropriate paperwork. Patient left at 1510 with Rx for Hydrocodone, Bottle of Folic Acid from [facility], Discharge Paperwork and all belongings.
--- NOTE | 2020-02-24 14:08 | PATH ---
[facility] [place] [address] PATHOLOGY RPT PROCEDURE Name: JASPER HAMLIN Room #: 453-P [facility] IN M.R.#: [id number] Admission: 02/09/20 Date of : 89 Discharge: 02/23/20 Report #: [id number] Path Case #: [id number] [facility] Accession Number: [id number] . 01 Material submitted: . PART A: liver - LIVER BIOPSY SEGMENT THREE PART B: gallbladder - GALLBLADDER . 01 Clinical history: . Obstructive jaundice . 02 Diagnosis: A. Liver, subcapsular wedge biopsy: - Marked sinusoidal dilatation and congestion, with aggregated sickled red blood cell thrombi and associated Kupffer cell erythrophagocytosis of sickle cells. - Kupffer cell and hepatocellular bile stasis. - Nodular regenerative hyperplasia. - Subcapsular hematomas. - Perisinudoidal/perivenular fibrosis. - Please see comment. . B. Gallbladder, excision: - Lithiasis. - Mild chronic cholecystitis. - Negative for malignancy. (MLK:pit; 02/24/2020) QTP 02/24/2020 1329 Local . 02 Comment: The liver biopsy is compatible with an acute sickle hepatic crisis. There is profound sinusoidal dilatation and congestion with aggregates of sickled red blood cells and thrombi. Prominent hepatocellular and Kupffer cell bile statsis is also noted and would be consistent with sickle cell intrahepatic cholestasis. There is no histologic evidence of a hepatobiliary duct obstruction. . . (MLK:pit; 02/24/2020) . 02 Electronically signed: . Hansel Delaney MD, Pathologist NPI- [id number] . 01 Gross description: . A. The specimen is received in formalin, labeled "Jasper Hamlin, liver biopsy segment three". Received is a segment [place] [address] PATHOLOGY RPT PROCEDURE Name: JASPER HAMLIN Room #: 453-P [facility] IN M.R.#: [id number] Admission: 02/09/20 Date of : 89 Discharge: 02/23/20 Report #: [id number] Path Case #: [id number] measuring 2.0 x 1.2 x 1.0 cm in greatest dimensions. The specimen is submitted entirely in cassette A1. . B. The specimen is received in formalin, labeled "Jasper Hamlin, gallbladder". Received is an intact gallbladder measuring 10.2 x 2.8 x 2.2 cm in greatest dimensions displaying a pink-haas, glistening serosal surface. Opening the specimen reveals a velvety, red-brown mucosa with a gallbladder wall thickness of 0.1 cm. The lumen of the gallbladder is filled with red-brown, thick bile. Calculi are present displaying a black and multifaceted appearance, and no masses or lesions are noted grossly. [employer] sections, to include the proximal margin, are submitted in cassette B1. (CAA; 02/20/2020) QA/[facility] 02/20/2020 1504 Local . 02 Microscopic: . A subcapsular wedge biopsy of the liver is available for review. There is significant zone 3 and mid zonal sinusoidal dilatation and congestion. Obvious sickled red blood cells are clustered within the sinusoids. Extramedullary hematopoiesis. evidenced by megakaryocytes and nucleated red blood cells is als seen within the sinusoids. Zone 3 Kupffer cell and hepatocellular bile stasis is noted. A mixed lymphoplasmacytic inflammatory infiltrate is also focally noted in zone 3 locations. Kupffer cells also focally show erythrophagocytosis. Scattered apoptotic body formation is noted. . The portal tracts are variable. Some display a mild lymphoplasmacytic inflammatory infiltrate. Neither portal edema nor bile ductular proliferation is prominent. Bile ducts are seen within the portal tracts examined. They have minimal epithelial injury. . There is significant ballooning degeneration of hepatocytes throughout the biopsy. Focal subcapsular wedge shaped hematomas are noted. . Overall the liver has a subtle nodular appearance. This is best noted on the reticulin stain, which highlights regenerative nodules flanked by atrophic cords. The PAS stain highlights hepatocellular glycogen. The PAS-D stain shows significant ceroid laden Kupffer cells. The iron stain shows scattered hemosiderin deposition within Kupffer cells. The trichrome stain shows areas of zone 3 perivenular and perisinusoidal fibrosis. Advanced bridging fibrosis is not identifeied. . . (MLK:pit; 02/24/2020) . Special stains; PAS with and without diastase, iron, trichrome, and reticulin. . [address] [address] PATHOLOGY RPT PROCEDURE Name: JASPER HAMLIN Room #: 453-P [facility] IN M.R.#: [id number] Admission: 02/09/20 Date of : 89 Discharge: 02/23/20 Report #: [id number] Path Case #: [id number] Pathologist provided ICD-10: K76.1, K76.89, K80.10 . 02 CPT . 068081, 280453, 411042, 669819, 847207, 464034, 160079 Specimen Comment: A courtesy copy of this report has been sent to [phone], [phone] Specimen Comment: [id number] Specimen Comment: Report sent to / DR SALAZAR Performed at: 01 [facility] [address] [id number] MD Pablo Morris MD Phone: [phone] Performed at: 02 [facility] [address] [id number] MD Sj Reed MD Phone: [phone]
== END 2020-02-23 15:16 | disposition home or self-care (01) | DRG 417 ==
LOC: ER 11:37 → 4W 12:09 → EROBS 12:09 → 4S 15:57 → 3W 02-10 09:35 → 4W 02-10 21:16
PROVIDERS: Emergency Medicine; Internal Medicine; Internal Medicine Hematology & Oncology; Nurse Practitioner; ADMIT Internal Medicine
PROC: 0F798ZZ Dilation of Common Bile Duct, Via Natural or Artificial Opening Endoscopic (ICD-10-PCS; 2020-02-19)
PROC: BF101ZZ Fluoroscopy of Bile Ducts using Low Osmolar Contrast (ICD-10-PCS; 2020-02-19)
PROC: 0FT44ZZ Resection of Gallbladder, Percutaneous Endoscopic Approach (ICD-10-PCS; principal; 2020-02-20)
PROC: 30233N1 Transfusion of Nonautologous Red Blood Cells into Peripheral Vein, Percutaneous Approach (ICD-10-PCS; 2020-02-20)
DX: K80.11 Calculus of gallbladder with chronic cholecystitis with obstruction (principal); J96.01 Acute respiratory failure with hypoxia; D57.00 Hb-SS disease with crisis, unspecified; E87.1 Hypo-osmolality and hyponatremia; K83.09 Other cholangitis; D62 Acute posthemorrhagic anemia; K83.9 Disease of biliary tract, unspecified; E80.6 Other disorders of bilirubin metabolism; D72.829 Elevated white blood cell count, unspecified; Z20.828 Contact with and (suspected) exposure to other viral communicable diseases; D63.8 Anemia in other chronic diseases classified elsewhere; E87.8 Other disorders of electrolyte and fluid balance, not elsewhere classified; E87.6 Hypokalemia; R74.0 Nonspecific elevation of levels of transaminase and lactic acid dehydrogenase [LDH]; Z79.899 Other long term (current) drug therapy
CPT/HCPCS: 10040; 10195; 50010; 50101; 50249; 50411; 50555; 50558; 51489; 52265; 52266; 53307; 53310; 53312; 54022; 54118; 55245; 56462; 56525; 56526; 62110; 62900; 70005